=== PATIENT | female | born 1940 | race Caucasian/White ===

== ENCOUNTER 2017-12-23 17:29 | Inpatient (IN) | payer OTHER, MEDICARE ==
[~2017-12-23] VITALS: Ht 152.4 cm; Wt 67.0 kg
[~2017-12-23 17:29] MED LIST: ASPIR-LOW81 MG PO; CILOSTAZOL50 MG PO; CINNAMON500 MG PO; ECHINACEA380 MG PO; METOPROLOL TART50 MG PO; MULTI VITAMIN1 EACH PO; PRILOSEC OTC20 MG PO; VITAMIN B-12250 MCG PO
[2017-12-23] MEDS ORDERED: CINNAMON500 MG PO (17:49)
[2017-12-23] MEDS ORDERED: CARVEDILOL6.25 MG PO (17:49)
[2017-12-23] MEDS ORDERED: LASIX20 MG PO (17:49)
[2017-12-23 18:58] LABS: HEMATOCRIT 34.2 % (36.0-46.0); MCH 31.4 PG (29.0-34.0); MCHC 32.2 G/DL (30.0-36.0); MCV 97.7 FL (83-99); PLATELET COUNT 238 K/uL (156-360); RBC DIS.WIDTH-CV 13.6 % (11.8-14.6); RBC DIS.WIDTH-SD 49.2 % (39-53); WHITE BLOOD COUNT 6.2 K/uL (4.1-10.2)
[2017-12-23 19:12] LABS: ALBUMIN 3.8 g/dL (3.2-4.8); CHLORIDE 102 mEq/L (99-109); POTASSIUM 4.1 mEq/L (3.7-5.4); SODIUM 138 mEq/L (136-147)
[2017-12-23 19:15] LABS: GLUCOSE 112 mg/dL (70-99)
[2017-12-23 19:16] LABS: TOTAL BILIRUBIN 0.4 mg/dL (0.0-1.0)
[2017-12-23 19:18] LABS: ALKALINE PHOSPHATASE 77 IU/L (3-129); CREATININE 1.3 mg/dL (0.6-1.3); GFR ESTIMATE (CALCULATED) 42 mL/min/
[2017-12-23 19:19] LABS: UREA NITROGEN (BUN) 16 mg/dL (9-23)
[2017-12-23 19:20] LABS: AST (GOT) 20 IU/L (2-34)
[2017-12-23 19:21] LABS: ALT (GPT) 12 IU/L (3-49)
[2017-12-23 19:23] LABS: TROP-I INTERPRETATION INDETERMINATE; TROPONIN-I 0.39 ng/mL (0.0-0.30)
[2017-12-23] MEDS ORDERED: NITROSTAT0.4 MG SL (21:38)
[2017-12-23 22:26] LABS: TROP-I INTERPRETATION INDETERMINATE; TROPONIN-I 0.38 ng/mL (0.0-0.30)
[2017-12-24 03:11] VITALS: BP 124/58
[2017-12-24 03:59] VITALS: BP 124/54
[2017-12-24 06:28] LABS: TROP-I INTERPRETATION POSITIVE; TROPONIN-I 0.87 ng/mL (0.0-0.30)
[2017-12-24 08:51] VITALS: BP 116/56
[2017-12-24 13:00] LABS: TROP-I INTERPRETATION POSITIVE; TROPONIN-I 0.87 ng/mL (0.0-0.30)
[2017-12-24 13:06] VITALS: BP 114/57
[2017-12-24 16:43] VITALS: BP 109/53
[2017-12-24 20:32] VITALS: BP 134/60
[2017-12-25] VITALS (7 sets, daily range): BP systolic 103–153; BP diastolic 48–81
[2017-12-25 06:25] LABS: HEMATOCRIT 31.1 % (36.0-46.0); HEMOGLOBIN 10.1 G/DL (11.9-15.5); MCHC 32.5 G/DL (30.0-36.0); MCV 95.4 FL (83-99); PLATELET COUNT 214 K/uL (156-360); RBC DIS.WIDTH-CV 13.4 % (11.8-14.6); RBC DIS.WIDTH-SD 47.2 % (39-53); RED BLOOD COUNT 3.26 M/uL (3.80-5.20); WHITE BLOOD COUNT 4.7 K/uL (4.1-10.2)
[2017-12-25 06:39] LABS: PTT 94.9 SEC (25-37)
[2017-12-25 07:09] LABS: CHLORIDE 99 MEQ/L (99-109); GFR ESTIMATE (CALCULATED) 29 mL/min/; GLUCOSE 154 mg/dL (70-99); POTASSIUM 4.4 MEQ/L (3.7-5.4); SODIUM 137 MEQ/L (136-147)
[2017-12-25 07:10] LABS: CREATININE 1.8 MG/DL (0.6-1.3); UREA NITROGEN (BUN) 31 mg/dL (9-23)
[2017-12-25 07:20] LABS: BASOPHIL (%) 0.2 % (0-1); EOSINOPHIL (%) 0 % (0-5); IMMATURE GRANULOCYTE (%) 0.2 % (0.0-0.7); LYMPHOCYTE (%) 12.6 % (15-42); LYMPHOCYTE COUNT 0.6 K/uL (1.0-2.8); MONOCYTE (%) 1.1 % (3-12); MONOCYTE COUNT 0.1 K/uL (0-0.8); NEUTROPHIL (%) 85.9 % (45-76)
[2017-12-25 08:51] LABS: INTER. NORMALIZED RATIO 1.1
[2017-12-26 04:40] VITALS: BP 136/63
[2017-12-26 04:49] LABS: BASOPHIL (%) 0.1 % (0-1); EOSINOPHIL (%) 0 % (0-5); HEMATOCRIT 31.5 % (36.0-46.0); HEMOGLOBIN 10.3 G/DL (11.9-15.5); IMMATURE GRANULOCYTE (%) 0.5 % (0.0-0.7); LYMPHOCYTE (%) 9.3 % (15-42); LYMPHOCYTE COUNT 1.1 K/uL (1.0-2.8); MCH 31.3 PG (29.0-34.0); MCHC 32.7 G/DL (30.0-36.0); MCV 95.7 FL (83-99); MONOCYTE (%) 3.9 % (3-12); MONOCYTE COUNT 0.5 K/uL (0-0.8); NEUTROPHIL (%) 86.2 % (45-76); NEUTROPHIL COUNT 10.6 K/uL (1.8-6.4); PLATELET COUNT 234 K/uL (156-360); RBC DIS.WIDTH-CV 13.6 % (11.8-14.6); RBC DIS.WIDTH-SD 48.2 % (39-53); RED BLOOD COUNT 3.29 M/uL (3.80-5.20); WHITE BLOOD COUNT 12.3 K/uL (4.1-10.2)
[2017-12-26 07:09] LABS: CREATININE 2.1 MG/DL (0.6-1.3); GFR ESTIMATE (CALCULATED) 24 mL/min/; GLUCOSE 149 mg/dL (70-99)
[2017-12-26 07:12] LABS: UREA NITROGEN (BUN) 50 mg/dL (9-23)
[2017-12-26 07:57] VITALS: BP 133/60
[2017-12-26 08:02] LABS: CHLORIDE 101 MEQ/L (99-109); SODIUM 139 MEQ/L (136-147)
[2017-12-26 12:00] VITALS: BP 128/75
[2017-12-26 16:00] VITALS: BP 116/53
[2017-12-26 20:37] VITALS: BP 143/63
[2017-12-27 01:22] VITALS: BP 121/56
[2017-12-27 05:14] VITALS: BP 126/64
[2017-12-27 06:41] LABS: BASOPHIL (%) 0.1 % (0-1); EOSINOPHIL (%) 0 % (0-5); HEMATOCRIT 31.4 % (36.0-46.0); IMMATURE GRANULOCYTE (%) 0.7 % (0.0-0.7); LYMPHOCYTE COUNT 0.9 K/uL (1.0-2.8); MCH 30.7 PG (29.0-34.0); MCHC 31.8 G/DL (30.0-36.0); MCV 96.3 FL (83-99); MONOCYTE (%) 4.1 % (3-12); MONOCYTE COUNT 0.6 K/uL (0-0.8); NEUTROPHIL (%) 89.1 % (45-76); NEUTROPHIL COUNT 13.1 K/uL (1.8-6.4); PLATELET COUNT 245 K/uL (156-360); RBC DIS.WIDTH-CV 13.7 % (11.8-14.6); RBC DIS.WIDTH-SD 48.3 % (39-53); RED BLOOD COUNT 3.26 M/uL (3.80-5.20); WHITE BLOOD COUNT 14.7 K/uL (4.1-10.2)
[2017-12-27 06:50] LABS: CHLORIDE 101 MEQ/L (99-109); CREATININE 1.8 MG/DL (0.6-1.3); GFR ESTIMATE (CALCULATED) 29 mL/min/; GLUCOSE 123 mg/dL (70-99); POTASSIUM 4.4 MEQ/L (3.7-5.4); SODIUM 140 MEQ/L (136-147); UREA NITROGEN (BUN) 50 mg/dL (9-23)
[2017-12-27 08:00] VITALS: BP 100/59
[2017-12-27 12:17] VITALS: BP 148/66
[2017-12-27 17:35] VITALS: BP 154/66
[2017-12-27 20:13] VITALS: BP 152/64
[2017-12-28 00:12] VITALS: BP 116/58
[2017-12-28 04:42] VITALS: BP 129/61
[2017-12-28 07:50] VITALS: BP 148/68
[2017-12-28 10:05] LABS: CHLORIDE 104 MEQ/L (99-109); POTASSIUM 4.1 MEQ/L (3.7-5.4); SODIUM 140 MEQ/L (136-147)
[2017-12-28 10:11] LABS: CREATININE 1.4 MG/DL (0.6-1.3); GFR ESTIMATE (CALCULATED) 39 mL/min/; UREA NITROGEN (BUN) 49 mg/dL (9-23)
[2017-12-28 10:13] LABS: GLUCOSE 92 mg/dL (70-99)
[2017-12-28 11:38] VITALS: BP 141/65
[2017-12-28 15:24] VITALS: BP 144/64
[2017-12-28] MEDS ORDERED: LISINOPRIL10 MG PO (16:05)
[2017-12-28] MEDS ORDERED: ADVAIR HFA120 INHALA IH (16:05)
[2017-12-28] MEDS ORDERED: CEFTIN500 MG PO (16:08)
[2017-12-28] MEDS ORDERED: SPIRIVA RESPIMAT4 GM IH (16:09)
[2017-12-28] MEDS ORDERED: VENTOLIN HFA18 GM IH (16:10)
[2017-12-28] MEDS ORDERED: PREDNISONE5 MG PO (16:11)
[2017-12-28] MEDS ORDERED: PRAVACHOL20 MG PO (16:15)
== END 2017-12-28 18:15 | disposition home or self-care (01) | DRG 190 ==
LOC: EME 17:29 → 4SOUTH 12-24 00:51 → EDOF 12-24 00:51 → ENRESERV 12-24 00:52 → CANRESERV 12-24 00:52 → ENRESERV 12-24 01:00 → 4SOUTH 12-24 02:57
PROVIDERS: Hospitalist; Internal Medicine; Physician Assistant
PROC: 0BBC3ZX Excision of Right Upper Lung Lobe, Percutaneous Approach, Diagnostic (ICD-10-PCS; principal; 2017-12-25)
DX: J44.0 Chronic obstructive pulmonary disease with (acute) lower respiratory infection (principal); J96.01 Acute respiratory failure with hypoxia; J18.9 Pneumonia, unspecified organism; C34.11 Malignant neoplasm of upper lobe, right bronchus or lung; I13.0 Hypertensive heart and chronic kidney disease with heart failure and stage 1 through stage 4 chronic kidney disease, or unspecified chronic kidney disease; N17.9 Acute kidney failure, unspecified; I25.10 Atherosclerotic heart disease of native coronary artery without angina pectoris; I25.5 Ischemic cardiomyopathy; I50.9 Heart failure, unspecified; E78.5 Hyperlipidemia, unspecified; E86.0 Dehydration; K21.9 Gastro-esophageal reflux disease without esophagitis; N18.3 Chronic kidney disease, stage 3 (moderate); I73.9 Peripheral vascular disease, unspecified; J20.9 Acute bronchitis, unspecified; J44.1 Chronic obstructive pulmonary disease with (acute) exacerbation; I65.23 Occlusion and stenosis of bilateral carotid arteries; I27.20 Pulmonary hypertension, unspecified; I35.8 Other nonrheumatic aortic valve disorders; I36.1 Nonrheumatic tricuspid (valve) insufficiency; Z95.5 Presence of coronary angioplasty implant and graft; Z79.82 Long term (current) use of aspirin; Z87.891 Personal history of nicotine dependence; Z95.1 Presence of aortocoronary bypass graft; Z86.73 Personal history of transient ischemic attack (TIA), and cerebral infarction without residual deficits; I25.2 Old myocardial infarction
CPT/HCPCS: 70549; 70553; 71045; 71275; 77012; 78582; 80048; 80053; 82948; 83605; 83880; 84484; 85025; 85027; 85379; 85610; 85730; 87040; 88305; 88341 TC; 88342 TC; 93005; 93306; 93880; 93970; 94640; 94640 76; 94760; 94799; 99202; 99281; 99285; A9540; A9567; J0696; J1940; J2930; J3010; J7512

== ENCOUNTER 2018-01-15 09:13 | Emergency (ER) | payer OTHER, MEDICARE ==
[~2018-01-15] VITALS: Ht 152.4 cm; Wt 63.6 kg
[~2018-01-15 09:13] MED LIST changes: +ADVAIR HFA120 INHALA IH; +CARVEDILOL6.25 MG PO; +CEFTIN500 MG PO; +LASIX20 MG PO; +LISINOPRIL10 MG PO; +NITROSTAT0.4 MG SL; +PRAVACHOL20 MG PO; +PREDNISONE5 MG PO; +SPIRIVA RESPIMAT4 GM IH; +VENTOLIN HFA18 GM IH
[2018-01-15] MEDS ORDERED: TRAMADOL HCL50 MG PO (13:39)
[2018-01-15 13:59] VITALS: BP 118/48
== END 2018-01-15 14:01 | disposition home or self-care (01) ==
LOC: RME 09:13 → EME 09:13 → RME 14:01
DX: S76.012A Strain of muscle, fascia and tendon of left hip, initial encounter (principal); S30.0XXA Contusion of lower back and pelvis, initial encounter; W19.XXXA Unspecified fall, initial encounter; I11.0 Hypertensive heart disease with heart failure; I50.9 Heart failure, unspecified; I25.2 Old myocardial infarction; K21.9 Gastro-esophageal reflux disease without esophagitis; Z95.1 Presence of aortocoronary bypass graft; Z95.5 Presence of coronary angioplasty implant and graft; Z87.891 Personal history of nicotine dependence
CPT/HCPCS: 72220; 73502; 99281; 99283

== ENCOUNTER → 2018-02-07 | Outpatient (CLI) | payer OTHER, MEDICARE ==
[~2018-02-07] MED LIST changes: +ACID CONTROL150 MG PO; +COREG3.125 M1 PO; +PRINIVIL5 MG PO; +TRAMADOL HCL50 MG PO
[2018-02-07 11:21] LABS: COMMENTS - BLOOD GASES NAC+; FI02 21 %; PCO2 42 mm Hg (35-45); PO2 68 mm Hg (80-100); SITE RR
[2018-02-07 11:22] LABS: CARBOXY HGB 1.9 % (0-5); METHEMOGLOBIN 0.8 % (0-1.5)
== END | disposition home or self-care (01) ==
LOC: RES 11:00
PROVIDERS: Thoracic Surgery (Cardiothoracic Vascular Surgery)
DX: J44.9 Chronic obstructive pulmonary disease, unspecified (principal)
CPT/HCPCS: 36600; 82803; 94060; 94726; 94729

== ENCOUNTER 2018-02-13 06:19 | Day surgery (SDC) | payer OTHER, MEDICARE ==
[~2018-02-13] VITALS: Ht 152.4 cm; Wt 63.5 kg
[2018-02-13 07:51] VITALS: BP 151/66
[2018-02-13 08:30] LABS: PTT 22.4 SEC (25-37)
[2018-02-13] MEDS ORDERED: HYDROCODON-ACE1 EAC7 PO (10:35)
[2018-02-13] MEDS ORDERED: COLACE100 MG PO (10:35)
[2018-02-13 12:20] VITALS: BP 102/62
[2018-02-13 12:55] VITALS: BP 140/64
[2018-02-13 14:47] VITALS: BP 141/64
[2018-02-13 17:10] VITALS: BP 143/66
== END 2018-02-13 17:30 | disposition home or self-care (01) ==
LOC: SDC 06:19
PROVIDERS: Thoracic Surgery (Cardiothoracic Vascular Surgery)
PROC: 07B74ZX Excision of Thorax Lymphatic, Percutaneous Endoscopic Approach, Diagnostic (ICD-10-PCS; principal; 2018-02-13)
DX: C34.11 Malignant neoplasm of upper lobe, right bronchus or lung (principal); Z87.891 Personal history of nicotine dependence; M25.559 Pain in unspecified hip; I11.0 Hypertensive heart disease with heart failure; I50.9 Heart failure, unspecified; I25.10 Atherosclerotic heart disease of native coronary artery without angina pectoris; I25.2 Old myocardial infarction; I34.0 Nonrheumatic mitral (valve) insufficiency; N28.9 Disorder of kidney and ureter, unspecified; Z86.73 Personal history of transient ischemic attack (TIA), and cerebral infarction without residual deficits; E78.5 Hyperlipidemia, unspecified; K21.9 Gastro-esophageal reflux disease without esophagitis; Z87.01 Personal history of pneumonia (recurrent); Z95.1 Presence of aortocoronary bypass graft; Z98.51 Tubal ligation status; Z82.49 Family history of ischemic heart disease and other diseases of the circulatory system; Z82.3 Family history of stroke; Z87.19 Personal history of other diseases of the digestive system
CPT/HCPCS: 71045; 71046; 85610; 85730; 86850; 86900; 86901; 88305; J0690; J1100; J1170; J1940; J2405; J2710

== ENCOUNTER 2018-02-25 14:57 | Emergency (ER) | payer OTHER, MEDICARE ==
[~2018-02-25] VITALS: Ht 154.9 cm; Wt 65.9 kg
[~2018-02-25 14:57] MED LIST changes: +COLACE100 MG PO; +HYDROCODON-ACE1 EAC7 PO
[2018-02-25 16:11] LABS: HEMATOCRIT 32.2 % (36.0-46.0); HEMOGLOBIN 10.4 G/DL (11.9-15.5); MCH 31.3 PG (29.0-34.0); MCHC 32.3 G/DL (30.0-36.0); PLATELET COUNT 399 K/uL (156-360); RBC DIS.WIDTH-CV 13.9 % (11.8-14.6); RBC DIS.WIDTH-SD 49.2 % (39-53); RED BLOOD COUNT 3.32 M/uL (3.80-5.20); WHITE BLOOD COUNT 9.4 K/uL (4.1-10.2)
[2018-02-25 16:21] LABS: CHLORIDE 104 mEq/L (99-109); POTASSIUM 4.8 mEq/L (3.7-5.4); SODIUM 140 mEq/L (136-147)
[2018-02-25 16:23] LABS: GLUCOSE 144 mg/dL (70-99)
[2018-02-25 16:26] LABS: CREATININE 1.5 mg/dL (0.6-1.3); GFR ESTIMATE (CALCULATED) 36 mL/min/
[2018-02-25 16:27] LABS: UREA NITROGEN (BUN) 25 mg/dL (9-23)
[2018-02-25 16:33] LABS: TROP-I INTERPRETATION NEGATIVE; TROPONIN-I 0.09 ng/mL (0.0-0.30)
[2018-02-25] MEDS ORDERED: ALBUTEROL2.5 MG/3 M IH (19:21)
[2018-02-25 21:24] VITALS: BP 123/72
== END 2018-02-25 21:25 | disposition home or self-care (01) ==
LOC: EME 14:57
PROVIDERS: Emergency Medicine Emergency Medical Services
DX: J44.1 Chronic obstructive pulmonary disease with (acute) exacerbation (principal); R09.02 Hypoxemia; I50.9 Heart failure, unspecified; I25.2 Old myocardial infarction; Z95.1 Presence of aortocoronary bypass graft; Z87.891 Personal history of nicotine dependence
CPT/HCPCS: 71045; 80048; 83880; 84484; 85027; 93005; 94640; 99281; 99285

== ENCOUNTER 2018-02-27 15:29 | Inpatient (IN) | payer OTHER, MEDICARE ==
[~2018-02-27] VITALS: Ht 152.4 cm; Wt 63.2 kg
[~2018-02-27 15:29] MED LIST changes: +ALBUTEROL2.5 MG/3 M IH
[2018-02-27] MEDS ORDERED: LASIX20 MG PO (16:06)
[2018-02-27 16:25] LABS: BASOPHIL (%) 0.4 % (0-1); BASOPHIL COUNT 0.1 K/uL (0-0.1); EOSINOPHIL (%) 2.3 % (0-5); EOSINOPHIL COUNT 0.3 K/uL (0-0.3); HEMATOCRIT 27.3 % (36.0-46.0); HEMOGLOBIN 8.6 G/DL (11.9-15.5); IMMATURE GRANULOCYTE (%) 0.3 % (0.0-0.7); LYMPHOCYTE (%) 17.3 % (15-42); MCHC 31.5 G/DL (30.0-36.0); MCV 98.6 FL (83-99); MONOCYTE (%) 6.2 % (3-12); MONOCYTE COUNT 0.7 K/uL (0-0.8); NEUTROPHIL (%) 73.5 % (45-76); NEUTROPHIL COUNT 8.4 K/uL (1.8-6.4); PLATELET COUNT 370 K/uL (156-360); RBC DIS.WIDTH-CV 14.6 % (11.8-14.6); RBC DIS.WIDTH-SD 52.8 % (39-53); RED BLOOD COUNT 2.77 M/uL (3.80-5.20); WHITE BLOOD COUNT 11.5 K/uL (4.1-10.2)
[2018-02-27 16:34] LABS: CHLORIDE 107 mEq/L (99-109); POTASSIUM 5.3 mEq/L (3.7-5.4); SODIUM 141 mEq/L (136-147)
[2018-02-27 16:35] LABS: INTER. NORMALIZED RATIO 1.1
[2018-02-27 16:36] LABS: GLUCOSE 103 mg/dL (70-99)
[2018-02-27 16:38] LABS: PTT 26.1 SEC (25-37)
[2018-02-27 16:39] LABS: GFR ESTIMATE (CALCULATED) 22 mL/min/
[2018-02-27 16:45] LABS: CREATININE 2.3 mg/dL (0.6-1.3); UREA NITROGEN (BUN) 49 mg/dL (9-23)
[2018-02-27 16:49] LABS: TROP-I INTERPRETATION POSITIVE
[2018-02-27] MEDS ORDERED: ADULT ASPIRIN R81 MG PO (20:25)
[2018-02-27] MEDS ORDERED: PROVENTIL,2.5 MG/3 M IH (20:25)
[2018-02-27 21:42] LABS: TROP-I INTERPRETATION POSITIVE
[2018-02-27 21:44] LABS: TROPONIN-I 12.48 ng/mL (0.0-0.30)
[2018-02-28 03:19] LABS: TROP-I INTERPRETATION POSITIVE
[2018-02-28 03:20] LABS: TROPONIN-I 25.95 ng/mL (0.0-0.30)
[2018-02-28 06:35] LABS: HEMATOCRIT 28.8 % (36.0-46.0); HEMOGLOBIN 9.1 G/DL (11.9-15.5); MCH 31.4 PG (29.0-34.0); MCHC 31.6 G/DL (30.0-36.0); MCV 99.3 FL (83-99); PLATELET COUNT 329 K/uL (156-360); RBC DIS.WIDTH-CV 14.7 % (11.8-14.6); RBC DIS.WIDTH-SD 53.3 % (39-53)
[2018-02-28 07:00] LABS: TROP-I INTERPRETATION POSITIVE
[2018-02-28 07:04] LABS: CHLORIDE 103 mEq/L (99-109); POTASSIUM 5.2 mEq/L (3.7-5.4); SODIUM 142 mEq/L (136-147)
[2018-02-28 07:06] LABS: GLUCOSE 101 mg/dL (70-99)
[2018-02-28 07:10] LABS: CREATININE 2.3 mg/dL (0.6-1.3); GFR ESTIMATE (CALCULATED) 22 mL/min/; UREA NITROGEN (BUN) 49 mg/dL (9-23)
[2018-02-28 07:12] LABS: TROPONIN-I 26.73 ng/mL (0.0-0.30)
[2018-02-28 12:20] LABS: TROP-I INTERPRETATION POSITIVE
[2018-02-28 12:22] LABS: TROPONIN-I 31.18 ng/mL (0.0-0.30)
[2018-02-28 17:30] VITALS: BP 116/56
[2018-02-28 19:26] VITALS: BP 92/55
[2018-02-28 23:43] VITALS: BP 96/55
[2018-03-01 04:24] VITALS: BP 94/52
[2018-03-01 08:27] VITALS: BP 112/54
[2018-03-01 11:50] VITALS: BP 107/53
[2018-03-01 15:43] VITALS: BP 107/54
[2018-03-01 19:45] VITALS: BP 115/60
[2018-03-02 00:20] VITALS: BP 105/60
[2018-03-02 02:29] VITALS: BP 115/62
[2018-03-02 07:17] VITALS: BP 102/58
[2018-03-02 09:11] LABS: HEMATOCRIT 26.6 % (36.0-46.0); HEMOGLOBIN 8.2 G/DL (11.9-15.5); MCHC 30.8 G/DL (30.0-36.0); MCV 97.4 FL (83-99); PLATELET COUNT 316 K/uL (156-360); RBC DIS.WIDTH-CV 14.9 % (11.8-14.6); RBC DIS.WIDTH-SD 53.3 % (39-53); RED BLOOD COUNT 2.73 M/uL (3.80-5.20); WHITE BLOOD COUNT 11.9 K/uL (4.1-10.2)
[2018-03-02 09:26] LABS: CHLORIDE 100 MEQ/L (99-109); GFR ESTIMATE (CALCULATED) 15 mL/min/; GLUCOSE 132 mg/dL (70-99); POTASSIUM 5.2 MEQ/L (3.7-5.4); SODIUM 135 MEQ/L (136-147); UREA NITROGEN (BUN) 58 mg/dL (9-23)
[2018-03-02 09:30] LABS: CREATININE 3.1 MG/DL (0.6-1.3)
[2018-03-02 12:36] VITALS: BP 101/52
[2018-03-02 15:39] VITALS: BP 100/55
[2018-03-02 21:45] VITALS: BP 100/50
[2018-03-03] VITALS (12 sets, daily range): BP systolic 100–124; BP diastolic 54–70
[2018-03-03 01:21] LABS: APPEARANCE SL.HAZY ((CLEAR)); BILIRUBIN NEGATIVE; BLOOD NEGATIVE; COLOR YELLOW ((YELLOW)); GLUCOSE (STRIP) NEGATIVE; KETONES NEGATIVE; LEUKOCYTES TRACE; NITRITE NEGATIVE; PROTEIN (STRIP) NEGATIVE; SPECIFIC GRAVITY 1.011 (1.000-1.030); UROBILINOGEN 0.2 MG/DL (0.2-1.0)
[2018-03-03 01:25] LABS: BACTERIA RARE /HPF; EPITHELIAL CELLS RARE /HPF; HYALINE CASTS 40-50 /LPF; MUCUS TRACE /LPF; RED BLOOD CELLS 0-5 /HPF (0-5); WHITE BLOOD CELLS 0-5 /HPF (0-5)
[2018-03-03 06:08] LABS: BASOPHIL (%) 0.8 % (0-1); BASOPHIL COUNT 0.1 K/uL (0-0.1); EOSINOPHIL (%) 4.2 % (0-5); EOSINOPHIL COUNT 0.4 K/uL (0-0.3); HEMATOCRIT 25.4 % (36.0-46.0); HEMOGLOBIN 7.9 G/DL (11.9-15.5); IMMATURE GRANULOCYTE (%) 0.2 % (0.0-0.7); LYMPHOCYTE (%) 20.5 % (15-42); LYMPHOCYTE COUNT 1.9 K/uL (1.0-2.8); MCHC 31.1 G/DL (30.0-36.0); MCV 96.6 FL (83-99); MONOCYTE (%) 9.7 % (3-12); MONOCYTE COUNT 0.9 K/uL (0-0.8); NEUTROPHIL (%) 64.6 % (45-76); PLATELET COUNT 294 K/uL (156-360); RBC DIS.WIDTH-CV 14.7 % (11.8-14.6); RBC DIS.WIDTH-SD 51.6 % (39-53); RED BLOOD COUNT 2.63 M/uL (3.80-5.20); WHITE BLOOD COUNT 9.3 K/uL (4.1-10.2)
[2018-03-03 06:27] LABS: CHLORIDE 102 MEQ/L (99-109); CREATININE 3.2 MG/DL (0.6-1.3); GFR ESTIMATE (CALCULATED) 15 mL/min/; GLUCOSE 105 mg/dL (70-99); MAGNESIUM 2.5 mg/dl (1.3-2.7); SODIUM 136 MEQ/L (136-147); UREA NITROGEN (BUN) 63 mg/dL (9-23)
[2018-03-04] VITALS (9 sets, daily range): BP systolic 98–121; BP diastolic 55–64
[2018-03-04 05:53] LABS: BASOPHIL (%) 0.6 % (0-1); BASOPHIL COUNT 0.1 K/uL (0-0.1); EOSINOPHIL (%) 3.6 % (0-5); EOSINOPHIL COUNT 0.3 K/uL (0-0.3); HEMATOCRIT 27.4 % (36.0-46.0); HEMOGLOBIN 8.7 G/DL (11.9-15.5); IMMATURE GRANULOCYTE (%) 0.2 % (0.0-0.7); LYMPHOCYTE (%) 18.6 % (15-42); LYMPHOCYTE COUNT 1.6 K/uL (1.0-2.8); MCH 30.1 PG (29.0-34.0); MCHC 31.8 G/DL (30.0-36.0); MCV 94.8 FL (83-99); MONOCYTE (%) 10.8 % (3-12); MONOCYTE COUNT 0.9 K/uL (0-0.8); NEUTROPHIL (%) 66.2 % (45-76); NEUTROPHIL COUNT 5.6 K/uL (1.8-6.4); PLATELET COUNT 272 K/uL (156-360); RBC DIS.WIDTH-CV 16.7 % (11.8-14.6); RBC DIS.WIDTH-SD 57.3 % (39-53); RED BLOOD COUNT 2.89 M/uL (3.80-5.20); WHITE BLOOD COUNT 8.5 K/uL (4.1-10.2)
[2018-03-04 05:54] LABS: CHLORIDE 102 MEQ/L (99-109); CREATININE 2.8 MG/DL (0.6-1.3); GFR ESTIMATE (CALCULATED) 17 mL/min/; GLUCOSE 103 mg/dL (70-99); POTASSIUM 4.8 MEQ/L (3.7-5.4); SODIUM 137 MEQ/L (136-147); UREA NITROGEN (BUN) 59 mg/dL (9-23)
[2018-03-05 00:23] VITALS: BP 96/51
[2018-03-05 03:05] VITALS: BP 108/57
[2018-03-05 05:38] LABS: BASOPHIL (%) 0.1 % (0-1); EOSINOPHIL (%) 0 % (0-5); HEMATOCRIT 33.8 % (36.0-46.0); HEMOGLOBIN 10.6 G/DL (11.9-15.5); IMMATURE GRANULOCYTE (%) 0.7 % (0.0-0.7); LYMPHOCYTE (%) 8.7 % (15-42); LYMPHOCYTE COUNT 0.6 K/uL (1.0-2.8); MCH 29.5 PG (29.0-34.0); MCHC 31.4 G/DL (30.0-36.0); MCV 94.2 FL (83-99); MONOCYTE (%) 1.4 % (3-12); MONOCYTE COUNT 0.1 K/uL (0-0.8); NEUTROPHIL (%) 89.1 % (45-76); NEUTROPHIL COUNT 6.5 K/uL (1.8-6.4); PLATELET COUNT 290 K/uL (156-360); RBC DIS.WIDTH-CV 16.2 % (11.8-14.6); RBC DIS.WIDTH-SD 56.1 % (39-53); WHITE BLOOD COUNT 7.3 K/uL (4.1-10.2)
[2018-03-05 05:48] LABS: RED BLOOD COUNT 3.59 M/uL (3.80-5.20)
[2018-03-05 06:45] LABS: CHLORIDE 99 MEQ/L (99-109); CREATININE 3.1 MG/DL (0.6-1.3); GFR ESTIMATE (CALCULATED) 15 mL/min/; GLUCOSE 139 mg/dL (70-99); SODIUM 131 MEQ/L (136-147); UREA NITROGEN (BUN) 71 mg/dL (9-23)
[2018-03-05 06:46] LABS: POTASSIUM 6.7 MEQ/L (3.7-5.4)
[2018-03-05 08:04] LABS: CHLORIDE 100 MEQ/L (99-109); CREATININE 3.2 MG/DL (0.6-1.3); GFR ESTIMATE (CALCULATED) 15 mL/min/; GLUCOSE 162 mg/dL (70-99); SODIUM 133 MEQ/L (136-147); UREA NITROGEN (BUN) 72 mg/dL (9-23)
[2018-03-05 08:06] LABS: POTASSIUM 6.4 MEQ/L (3.7-5.4)
[2018-03-05 08:44] VITALS: BP 122/58
[2018-03-05 11:37] VITALS: BP 109/58
[2018-03-05 15:54] VITALS: BP 123/60
[2018-03-05 17:38] LABS: CHLORIDE 98 MEQ/L (99-109); CREATININE 3.4 MG/DL (0.6-1.3); GFR ESTIMATE (CALCULATED) 14 mL/min/; GLUCOSE 149 mg/dL (70-99); SODIUM 134 MEQ/L (136-147); UREA NITROGEN (BUN) 82 mg/dL (9-23)
[2018-03-05 17:43] LABS: POTASSIUM 4.7 MEQ/L (3.7-5.4)
[2018-03-05 20:02] VITALS: BP 103/53
[2018-03-06 00:30] VITALS: BP 100/62
[2018-03-06 03:05] VITALS: BP 104/75
[2018-03-06 05:08] LABS: CHLORIDE 99 mEq/L (99-109); SODIUM 135 mEq/L (136-147)
[2018-03-06 05:10] LABS: GLUCOSE 127 mg/dL (70-99); POTASSIUM 5.7 mEq/L (3.7-5.4)
[2018-03-06 05:11] LABS: BASOPHIL (%) 0.1 % (0-1); EOSINOPHIL (%) 0 % (0-5); HEMATOCRIT 30.6 % (36.0-46.0); IMMATURE GRANULOCYTE (%) 0.8 % (0.0-0.7); LYMPHOCYTE (%) 4.7 % (15-42); LYMPHOCYTE COUNT 0.7 K/uL (1.0-2.8); MCH 30.5 PG (29.0-34.0); MCHC 32.7 G/DL (30.0-36.0); MCV 93.3 FL (83-99); MONOCYTE (%) 4.5 % (3-12); MONOCYTE COUNT 0.7 K/uL (0-0.8); NEUTROPHIL (%) 89.9 % (45-76); PLATELET COUNT 297 K/uL (156-360); RBC DIS.WIDTH-CV 15.9 % (11.8-14.6); RBC DIS.WIDTH-SD 54.1 % (39-53); RED BLOOD COUNT 3.28 M/uL (3.80-5.20); WHITE BLOOD COUNT 14.5 K/uL (4.1-10.2)
[2018-03-06 05:14] LABS: CREATININE 4.1 mg/dL (0.6-1.3); GFR ESTIMATE (CALCULATED) 11 mL/min/
[2018-03-06 05:15] LABS: UREA NITROGEN (BUN) 92 mg/dL (9-23)
[2018-03-06 07:32] VITALS: BP 102/57
[2018-03-06] MEDS ORDERED: ASPIRIN EC325 MG PO (10:41)
[2018-03-06] MEDS ORDERED: HYOSCYAMINE0.125 M2 PO (10:41)
[2018-03-06] MEDS ORDERED: ATORVASTATIN CA40 MG PO (10:41)
[2018-03-06] MEDS ORDERED: LASIX20 MG PO (10:41)
[2018-03-06] MEDS ORDERED: LOPRESSOR25 MG PO (10:41)
[2018-03-06] MEDS ORDERED: ATIVAN INTE2 MG/1 ML PO (10:41)
[2018-03-06] MEDS ORDERED: CLOPIDOGREL75 MG PO (10:41)
[2018-03-06] MEDS ORDERED: RANEXA500 MG PO (10:41)
[2018-03-06] MEDS ORDERED: MORPHINE CON20 MG/M1 PO (10:41)
[2018-03-06] MEDS ORDERED: SPIRIVA RESPIMAT4 GM IH (10:41)
[2018-03-06 11:29] VITALS: BP 120/57
== END 2018-03-06 13:20 | disposition hospice, home (50) | DRG 281 ==
LOC: EME 15:29 → 4EAST 19:36 → ENRESERV 19:36 → EDOF 19:36 → ENRESERV 02-28 00:26 → EDOF 02-28 00:29 → ENRESERV 02-28 01:12 → 4EAST 02-28 17:19
PROVIDERS: Emergency Medicine; Hospitalist; Internal Medicine Nephrology
PROC: 30233N1 Transfusion of Nonautologous Red Blood Cells into Peripheral Vein, Percutaneous Approach (ICD-10-PCS; principal; 2018-03-03)
DX: I21.4 Non-ST elevation (NSTEMI) myocardial infarction (principal); I25.110 Atherosclerotic heart disease of native coronary artery with unstable angina pectoris; I25.5 Ischemic cardiomyopathy; N17.9 Acute kidney failure, unspecified; E87.5 Hyperkalemia; I13.0 Hypertensive heart and chronic kidney disease with heart failure and stage 1 through stage 4 chronic kidney disease, or unspecified chronic kidney disease; I50.9 Heart failure, unspecified; N18.3 Chronic kidney disease, stage 3 (moderate); C34.90 Malignant neoplasm of unspecified part of unspecified bronchus or lung; Z66 Do not resuscitate; Z51.5 Encounter for palliative care; J98.11 Atelectasis; R59.0 Localized enlarged lymph nodes; D63.1 Anemia in chronic kidney disease; I65.21 Occlusion and stenosis of right carotid artery; J44.1 Chronic obstructive pulmonary disease with (acute) exacerbation; E78.5 Hyperlipidemia, unspecified; K21.9 Gastro-esophageal reflux disease without esophagitis; I73.9 Peripheral vascular disease, unspecified; I25.2 Old myocardial infarction; Z87.891 Personal history of nicotine dependence; Z95.1 Presence of aortocoronary bypass graft; Z95.5 Presence of coronary angioplasty implant and graft; Z95.820 Peripheral vascular angioplasty status with implants and grafts; Z82.49 Family history of ischemic heart disease and other diseases of the circulatory system
CPT/HCPCS: 71045; 71250; 80047; 80048; 80048 91; 81003; 82948; 83735; 83880; 84484; 85025; 85027; 85610; 85730; 86850; 86900; 86901; 86920; 93005; 94640; 94640 76; 94799; 99202; 99281; 99285; J0780; J1644; J1815; J1940; J2405; J2930; J3010; J7050; P9016; S0028

== ENCOUNTER 2018-03-28 19:36 | Inpatient (IN) | payer OTHER, MEDICARE ==
[~2018-03-28] VITALS: Ht 152.4 cm; Wt 66.0 kg
[~2018-03-28 19:36] MED LIST changes: +ADULT ASPIRIN R81 MG PO; +ASPIRIN EC325 MG PO; +ATIVAN INTE2 MG/1 ML PO; +ATORVASTATIN CA40 MG PO; +CLOPIDOGREL75 MG PO; +HYOSCYAMINE0.125 M2 PO; +LOPRESSOR25 MG PO; +MORPHINE CON20 MG/M1 PO; -MULTI VITAMIN1 EACH PO; +RANEXA500 MG PO; -VITAMIN B-12250 MCG PO
[2018-03-28 20:46] LABS: BASOPHIL COUNT 0.1 K/uL (0-0.1); EOSINOPHIL (%) 2.7 % (0-5); EOSINOPHIL COUNT 0.2 K/uL (0-0.3); HEMATOCRIT 33.1 % (36.0-46.0); HEMOGLOBIN 10.5 G/DL (11.9-15.5); IMMATURE GRANULOCYTE (%) 0.4 % (0.0-0.7); LYMPHOCYTE (%) 17.1 % (15-42); LYMPHOCYTE COUNT 1.5 K/uL (1.0-2.8); MCH 30.3 PG (29.0-34.0); MCHC 31.7 G/DL (30.0-36.0); MCV 95.7 FL (83-99); MONOCYTE (%) 13.2 % (3-12); MONOCYTE COUNT 1.2 K/uL (0-0.8); NEUTROPHIL (%) 65.6 % (45-76); NEUTROPHIL COUNT 5.9 K/uL (1.8-6.4); PLATELET COUNT 334 K/uL (156-360); RBC DIS.WIDTH-CV 17.6 % (11.8-14.6); RBC DIS.WIDTH-SD 60.3 % (39-53); RED BLOOD COUNT 3.46 M/uL (3.80-5.20)
[2018-03-28 20:48] LABS: BASE EXCESS 0.8 mEq/L (-3 to +3); CARBOXY HGB 2.2 % (0-5); COMMENTS - BLOOD GASES A+C+; DEVICE NC; METHEMOGLOBIN 1.2 % (0-1.5); O2 FLOW 2 L/MIN; PCO2 43 mm Hg (35-45); PO2 69 mm Hg (80-100); SITE RR; TOTAL RESP RATE 25 resp/min; pH 7.39 (7.35-7.45)
[2018-03-28 20:57] LABS: ALBUMIN 3.5 g/dL (3.2-4.8); CHLORIDE 108 mEq/L (99-109); POTASSIUM 4.4 mEq/L (3.7-5.4); SODIUM 144 mEq/L (136-147)
[2018-03-28 20:58] LABS: MAGNESIUM 2.2 mg/dL (1.3-2.7)
[2018-03-28 20:59] LABS: GLUCOSE 109 mg/dL (70-99)
[2018-03-28 21:00] LABS: TOTAL PROTEIN 7.1 g/dL (6.4-8.3)
[2018-03-28 21:01] LABS: TOTAL BILIRUBIN 1.2 mg/dL (0.0-1.0)
[2018-03-28 21:03] LABS: ALKALINE PHOSPHATASE 79 IU/L (3-129); CREATININE 2.5 mg/dL (0.6-1.3); GFR ESTIMATE (CALCULATED) 20 mL/min/
[2018-03-28 21:04] LABS: UREA NITROGEN (BUN) 58 mg/dL (9-23)
[2018-03-28 21:05] LABS: AST (GOT) 53 IU/L (2-34)
[2018-03-28 21:06] LABS: ALT (GPT) 41 IU/L (3-49)
[2018-03-28 21:09] LABS: TROP-I INTERPRETATION NEGATIVE; TROPONIN-I 0.06 ng/mL (0.0-0.30)
[2018-03-28] MEDS ORDERED: AMARYL1 MG PO (22:25)
[2018-03-28] MEDS ORDERED: AMARYL2 MG PO (22:26)
[2018-03-28] MEDS ORDERED: NORVASC10 MG PO (22:28)
[2018-03-28] MEDS ORDERED: ASPIRIN EC325 MG PO (22:30)
[2018-03-28] MEDS ORDERED: PEPCID AC20 M1 PO (22:32)
[2018-03-28] MEDS ORDERED: CEROVITE SENIO1 EACH PO (22:33)
[2018-03-28] MEDS ORDERED: SENNA PLUS TAB1 EACH PO (22:36)
[2018-03-28] MEDS ORDERED: FEOSOL325 MG PO (22:37)
[2018-03-28] MEDS ORDERED: FISH OIL 500 M1 EAC4 PO (22:39)
[2018-03-28] MEDS ORDERED: LOPRESSOR25 MG PO (22:41)
[2018-03-28] MEDS ORDERED: APRESOLINE25 MG PO (22:43)
[2018-03-28] MEDS ORDERED: TYLENOL REGULA325 MG PO (22:45)
[2018-03-28] MEDS ORDERED: COUGH SYRU100 MG/5 M PO (22:49)
[2018-03-28] MEDS ORDERED: MILK OF MAGN PO (22:50)
[2018-03-28] MEDS ORDERED: MIRALAX255 GM PO (22:50)
[2018-03-28] MEDS ORDERED: PERCOCET 5/31 TABLET PO (22:53)
[2018-03-28] MEDS ORDERED: PERCOCET 10/1 TABLET PO (22:54)
[2018-03-28] MEDS ORDERED: TUMS500 MG PO (22:55)
[2018-03-29] VITALS (7 sets, daily range): BP systolic 115–140; BP diastolic 56–87
[2018-03-29 09:38] LABS: HEMATOCRIT 33.3 % (36.0-46.0); HEMOGLOBIN 10.2 G/DL (11.9-15.5); MCH 30.2 PG (29.0-34.0); MCHC 30.6 G/DL (30.0-36.0); MCV 98.5 FL (83-99); PLATELET COUNT 328 K/uL (156-360); RBC DIS.WIDTH-CV 17.8 % (11.8-14.6); RBC DIS.WIDTH-SD 63.2 % (39-53); RED BLOOD COUNT 3.38 M/uL (3.80-5.20)
[2018-03-29 09:49] LABS: TROP-I INTERPRETATION NEGATIVE; TROPONIN-I 0.07 ng/mL (0.0-0.30)
[2018-03-29 09:52] LABS: CHLORIDE 105 MEQ/L (99-109); CREATININE 2.4 MG/DL (0.6-1.3); GFR ESTIMATE (CALCULATED) 21 mL/min/; GLUCOSE 105 mg/dL (70-99); POTASSIUM 4.8 MEQ/L (3.7-5.4); SODIUM 146 MEQ/L (136-147); UREA NITROGEN (BUN) 55 mg/dL (9-23)
[2018-03-29 16:04] LABS: BICARBONATE 26.6 mEq/L (22-26); CARBOXY HGB 2.2 % (0-5); METHEMOGLOBIN 1.6 % (0-1.5); PCO2 46 mm Hg (35-45); PO2 56 mm Hg (80-100); pH 7.37 (7.35-7.45)
[2018-03-29 16:05] LABS: COMMENTS - BLOOD GASES C+A+; DEVICE NC; O2 FLOW 2 L/MIN; SITE RB
[2018-03-29 19:16] LABS: TROP-I INTERPRETATION NEGATIVE; TROPONIN-I 0.09 ng/mL (0.0-0.30)
[2018-03-30 04:06] VITALS: BP 128/70
[2018-03-30 07:25] VITALS: BP 108/53
[2018-03-30 08:59] LABS: HEMATOCRIT 33.6 % (36.0-46.0); HEMOGLOBIN 10.4 G/DL (11.9-15.5); MCH 30.3 PG (29.0-34.0); PLATELET COUNT 319 K/uL (156-360); RBC DIS.WIDTH-CV 17.8 % (11.8-14.6); RBC DIS.WIDTH-SD 62.4 % (39-53); RED BLOOD COUNT 3.43 M/uL (3.80-5.20); WHITE BLOOD COUNT 4.4 K/uL (4.1-10.2)
[2018-03-30 09:24] LABS: CHLORIDE 102 MEQ/L (99-109); CREATININE 2.7 MG/DL (0.6-1.3); GFR ESTIMATE (CALCULATED) 18 mL/min/; GLUCOSE 181 mg/dL (70-99); POTASSIUM 4.8 MEQ/L (3.7-5.4); SODIUM 141 MEQ/L (136-147); UREA NITROGEN (BUN) 70 mg/dL (9-23)
[2018-03-30 11:10] VITALS: BP 112/55
[2018-03-30 12:30] LABS: TROP-I INTERPRETATION NEGATIVE; TROPONIN-I 0.07 ng/mL (0.0-0.30)
[2018-03-30 13:37] LABS: HEMATOCRIT 32.9 % (36.0-46.0); HEMOGLOBIN 10.2 G/DL (11.9-15.5); MCH 30.1 PG (29.0-34.0); MCV 97.1 FL (83-99); PLATELET COUNT 320 K/uL (156-360); RBC DIS.WIDTH-CV 17.6 % (11.8-14.6); RBC DIS.WIDTH-SD 61.7 % (39-53); RED BLOOD COUNT 3.39 M/uL (3.80-5.20); WHITE BLOOD COUNT 4.8 K/uL (4.1-10.2)
[2018-03-30 13:58] LABS: ALBUMIN 3.4 g/dL (3.2-4.8); CHLORIDE 101 mEq/L (99-109); POTASSIUM 4.9 mEq/L (3.7-5.4); SODIUM 139 mEq/L (136-147)
[2018-03-30 14:00] LABS: GLUCOSE 204 mg/dL (70-99)
[2018-03-30 14:01] LABS: TOTAL PROTEIN 6.5 g/dL (6.4-8.3)
[2018-03-30 14:04] LABS: ALKALINE PHOSPHATASE 82 IU/L (3-129); CREATININE 2.8 mg/dL (0.6-1.3); GFR ESTIMATE (CALCULATED) 17 mL/min/; TOTAL BILIRUBIN 0.9 mg/dL (0.0-1.0)
[2018-03-30 14:05] LABS: UREA NITROGEN (BUN) 72 mg/dL (9-23)
[2018-03-30 14:06] LABS: AST (GOT) 50 IU/L (2-34); DIRECT BILIRUBIN 0.5 mg/dL (0.0-0.3)
[2018-03-30 14:07] LABS: ALT (GPT) 59 IU/L (3-49)
[2018-03-31 07:34] VITALS: BP 113/78
[2018-03-31] MEDS ORDERED: MULTI VITAMIN1 EACH PO (10:30)
[2018-03-31] MEDS ORDERED: PROVENTIL,2.5 MG/3 M IH (10:30)
[2018-03-31] MEDS ORDERED: VITAMIN B-12250 MCG PO (10:30)
[2018-03-31] MEDS ORDERED: FUROSEMIDE20 MG PO (10:31)
[2018-03-31] MEDS ORDERED: RANEXA500 MG PO (10:33)
[2018-03-31] MEDS ORDERED: SPIRIVA RESPIMAT4 GM IH (10:33)
[2018-03-31] MEDS ORDERED: LOPRESSOR25 MG PO (10:33)
[2018-03-31] MEDS ORDERED: MORPHINE CON20 MG/M1 PO (10:33)
[2018-03-31] MEDS ORDERED: HYOSCYAMINE0.125 M1 SL (10:34)
[2018-03-31] MEDS ORDERED: ATIVAN INTE2 MG/1 ML PO (10:34)
[2018-03-31 11:27] VITALS: BP 108/60
[2018-04-01] MEDS ORDERED: TYLENOL REGULA325 MG PO (11:01)
[2018-04-01] MEDS ORDERED: ATIVAN0.5 MG PO (11:02)
== END 2018-04-01 12:15 | disposition hospice, home (50) | DRG 189 ==
LOC: EME 19:36 → 2EAST 22:47 → EDOF 22:47 → ENRESERV 22:48 → 2EAST 23:59
PROVIDERS: Emergency Medicine; Hospitalist; Internal Medicine; Student in an Organized Health Care Education/Training Program
DX: J96.01 Acute respiratory failure with hypoxia (principal); I13.0 Hypertensive heart and chronic kidney disease with heart failure and stage 1 through stage 4 chronic kidney disease, or unspecified chronic kidney disease; I50.23 Acute on chronic systolic (congestive) heart failure; G93.41 Metabolic encephalopathy; J44.1 Chronic obstructive pulmonary disease with (acute) exacerbation; J18.9 Pneumonia, unspecified organism; J44.0 Chronic obstructive pulmonary disease with (acute) lower respiratory infection; N17.9 Acute kidney failure, unspecified; E11.22 Type 2 diabetes mellitus with diabetic chronic kidney disease; N18.3 Chronic kidney disease, stage 3 (moderate); E11.51 Type 2 diabetes mellitus with diabetic peripheral angiopathy without gangrene; I25.5 Ischemic cardiomyopathy; I95.9 Hypotension, unspecified; I25.118 Atherosclerotic heart disease of native coronary artery with other forms of angina pectoris; Z66 Do not resuscitate; Z51.5 Encounter for palliative care; R62.7 Adult failure to thrive; C34.11 Malignant neoplasm of upper lobe, right bronchus or lung; I24.9 Acute ischemic heart disease, unspecified; R29.6 Repeated falls; K21.9 Gastro-esophageal reflux disease without esophagitis; E78.5 Hyperlipidemia, unspecified; I25.2 Old myocardial infarction; Z87.01 Personal history of pneumonia (recurrent); Z95.5 Presence of coronary angioplasty implant and graft; Z95.1 Presence of aortocoronary bypass graft; Z86.73 Personal history of transient ischemic attack (TIA), and cerebral infarction without residual deficits; Z87.891 Personal history of nicotine dependence; Z79.82 Long term (current) use of aspirin; Z79.84 Long term (current) use of oral hypoglycemic drugs; Z82.49 Family history of ischemic heart disease and other diseases of the circulatory system
CPT/HCPCS: 36600; 70450; 71045; 71046; 71250; 72125; 74176; 80048; 80053; 80076; 82140; 82248; 82803; 82948; 83605; 83735; 83880; 84484; 85025; 85027; 93005; 94640; 94640 76; 94799; 99202; 99281; 99285; J0456; J0696; J1644; J1940; J2060; J2270; J2930